=== PATIENT | female | born 1980 | race American Indian/Alaskan Native ===

== ENCOUNTER 2016-09-29 14:01 | Emergency (ER) | payer SELFPAY ==
[2016-09-29 14:14] VITALS: BP 119/71
[2016-09-29] MEDS ORDERED: DILAUDID IM ONE (16:49)
[2016-09-29] MEDS ORDERED: REGLAN IM ONE (16:49)
--- NOTE | 2016-09-29 17:05 | Emergency Department Report ---
ED Headache HPI - General Chief Complaint: Headache Stated Complaint: MIGRAINE/DIZZINESS Time Seen by Provider: 09/29/16 16:18 Source: patient - History of Present Illness Initial Comments: Action comes into the ER today with complaints of right sided headache for the past one day. Patient denies any injury. Patient notes that she does have a history of headaches and that her last headache of this magnitude was approximately 1.5 months ago. Patient denies any known definitive cause to her recurrent headaches but does state that since she has moved to the area, she does seem to get more headaches. Patient states that she used to live in [place] and [facility] and that she thinks her sinuses may be worse here in [place]. Patient states that this headache does feel similar to her past migraines. Patient has been nauseated without any vomiting. Patient denies any visual changes but does state that the light seems to intensify the pain. Patientthat she has had these in the past and that usually a Dilaudid shot is required to help with her discomfort. Allergies/Adverse Reactions: Allergies haloperidol [From Haldol] Adverse Reaction (Verified 09/29/16 14:15) dystonic reaction haloperidol lactate [From Haldol] Adverse Reaction (Verified 09/29/16 14:15) dystonic reaction Home Medications: Ambulatory Orders Loperamide [Imodium] 2 mg PO Q2HR #10 capsule 06/28/15 Magnesium Oxide [Magnesium] 400 mg PO BID #30 tablet 08/01/15 Meclizine [Antivert] 25 mg PO TID PRN #30 tablet 08/01/15 Metoclopramide [Reglan] 10 mg PO QID PRN #20 tab 08/01/15 Potassium Chloride [K-Dur] 20 meq PO BID #30 tab 08/01/15 Acetaminophen/Codeine [Tylenol #3] 1 tab PO Q6H PRN #12 tab 11/19/15 Cephalexin [Keflex] 500 mg PO Q8HR #5 cap 11/19/15 Amoxicillin 1,000 mg PO BID #40 capsule 09/29/16 Butalb/Acetamin/Caff 50-325-40 [Fioricet] 1 tab PO Q6HR PRN #20 tab 09/29/16 Promethazine [Phenergan TAB] 25 mg PO Q8HR PRN #15 tab 09/29/16 ED Review of Systems ROS: Stated complaint: MIGRAINE/DIZZINESS Other details as noted in HPI Constitutional: denies: chills, fever Eyes: denies: eye pain, eye discharge, vision change ENT: congestion. denies: ear pain, throat pain, dental pain, hearing loss, epistaxis Respiratory: denies: cough, shortness of breath, wheezing Cardiovascular: denies: chest pain, palpitations Endocrine: no symptoms reported Gastrointestinal: nausea. denies: abdominal pain, vomiting, diarrhea Genitourinary: denies: urgency, dysuria, discharge Musculoskeletal: denies: back pain, joint swelling, arthralgia Skin: denies: rash, lesions Neurological: headache. denies: weakness, numbness, paresthesias, confusion, abnormal gait, vertigo Psychiatric: denies: anxiety, depression Hematological/Lymphatic: denies: easy bleeding, easy bruising ED Past Medical Hx - Past Medical History Hx Headaches / Migraines: Yes (migraines) Hx Asthma: Yes Additional medical history: Gidelmans syndrome - Surgical History Additional Surgical History: hysterectomy 2005 - Social History Smoking Status: Current Every Day Smoker Substance Use Type: Prescribed - Medications Home Medications: Home Medications Medication Instructions Recorded Confirmed Last Taken Type Loperamide [Imodium] 2 mg PO Q2HR #10 capsule 06/28/15 Unknown Rx Magnesium Oxide [Magnesium] 400 mg PO BID #30 tablet 08/01/15 Unknown Rx Meclizine [Antivert] 25 mg PO TID PRN #30 tablet 08/01/15 Unknown Rx Metoclopramide [Reglan] 10 mg PO QID PRN #20 tab 08/01/15 Unknown Rx Potassium Chloride [K-Dur] 20 meq PO BID #30 tab 08/01/15 Unknown Rx Acetaminophen/Codeine [Tylenol #3] 1 tab PO Q6H PRN #12 tab 11/19/15 Unknown Rx Cephalexin [Keflex] 500 mg PO Q8HR #5 cap 11/19/15 Unknown Rx Amoxicillin 1,000 mg PO BID #40 capsule 09/29/16 Unknown Rx Butalb/Acetamin/Caff 50-325-40 1 tab PO Q6HR PRN #20 tab 09/29/16 Unknown Rx [Fioricet] Promethazine [Phenergan TAB] 25 mg PO Q8HR PRN #15 tab 09/29/16 Unknown Rx ED Physical Exam - General Limitations: No Limitations General appearance: alert, in no apparent distress - Head Head exam: Present: atraumatic, normocephalic - Eye Eye exam: Present: normal appearance, PERRL, EOMI. Absent: conjunctival injection, periorbital swelling, periorbital tenderness Pupils: Present: normal accommodation - ENT ENT exam: Present: normal orophraynx, mucous membranes moist, TM's normal bilaterally, normal external ear exam, other (bilateral nasal mucosa redness and turbinate swelling. Right maxillary and frontal sinus tenderness to percussion.) - Neck Neck exam: Present: normal inspection, full ROM. Absent: tenderness, lymphadenopathy - Respiratory Respiratory exam: Present: normal lung sounds bilaterally. Absent: respiratory distress, decreased breath sounds - Cardiovascular Cardiovascular Exam: Present: regular rate, normal rhythm, normal heart sounds. Absent: systolic murmur, diastolic murmur, rubs, gallop - GI/Abdominal GI/Abdominal exam: Present: soft, normal bowel sounds. Absent: distended, tenderness - Extremities Exam Extremities exam: Present: normal inspection, full ROM, normal capillary refill. Absent: tenderness, pedal edema, joint swelling, calf tenderness - Back Exam Back exam: Present: normal inspection, full ROM. Absent: tenderness, CVA tenderness (R), CVA tenderness (L), muscle spasm, paraspinal tenderness, vertebral tenderness - Neurological Exam Neurological exam: Present: alert, oriented X3, CN II-XII intact, normal gait, reflexes normal. Absent: motor sensory deficit - Psychiatric Psychiatric exam: Present: normal affect, normal mood - Skin Skin exam: Present: warm, dry, intact, normal color. Absent: rash ED Course Vital Signs 09/29/16 09/29/16 14:09 17:01 Temperature 98.8 F Pulse Rate 92 H Respiratory 15 18 Rate Blood Pressure 119/71 O2 Sat by Pulse 100 Oximetry ED Medical Decision Making - Medical Decision Making Patient is nontoxic and hemodynamically stable. I believe patient's underlying cause to her recurrent headaches is most likely sinus related. Patient does have examination consistent with sinus infection today. I will start patient on antibiotics accordingly for her sinuses as well as prescribe her some medications for her headache. Patient was given intramuscular Reglan and Dilaudid shot here in the ER to expedite symptomatic relief. I will also refer patient to neurology for further evaluation of her recurrent headaches. Patient is in agreement with treatment plan patient is stable for discharge. Critical care attestation.: If time is entered above; I have spent that time in minutes in the direct care of this critically ill patient, excluding procedure time. ED Disposition Clinical Impression: Right-sided headache, Sinusitis Disposition: TO HOME OR SELFCARE Is pt being admited?: No Does the pt Need Aspirin: No Condition: Good Instructions: Sinusitis (ED), Migraine Headache (ED) Prescriptions: Amoxicillin 1,000 mg PO BID #40 capsule Butalb/Acetamin/Caff 50-325-40 [Fioricet] 1 tab PO Q6HR PRN #20 tab PRN Reason: Headache Promethazine [Phenergan TAB] 25 mg PO Q8HR PRN #15 tab PRN Reason: Nausea Referrals: PRIMARY CAREMD [Primary Care Provider] - 3-5 Days LEISA GUTIERREZ MD [Referring] - 3-5 Days (Neurology doctor) Time of Disposition: 17:10
== END 2016-09-29 17:37 | disposition home or self-care (01) ==
LOC: ED 14:01
DX: J32.9 Chronic sinusitis, unspecified (principal); R51 Headache; G43.909 Migraine, unspecified, not intractable, without status migrainosus; F17.200 Nicotine dependence, unspecified, uncomplicated; J45.909 Unspecified asthma, uncomplicated; Z88.8 Allergy status to other drugs, medicaments and biological substances
CPT/HCPCS: 96372; 99282; J1170; J2765

== ENCOUNTER 2016-10-25 18:57 | Emergency (ER) | payer OTHER ==
[2016-10-25 21:05] LABS: Bacteria,Urine 1+ /HPF (Negative); Bilirubin,Urine NEG (Negative); Blood,Urine NEG (Negative); Ketones,Urine NEG (Negative); Leukocyte Esterase,Urine SM (Negative); Mucus,Urine FEW /HPF; Nitrite,Urine NEG (Negative); Protein,Urine <15 mg/dL mg/dL (Negative); Urobilinogen,Urine < 2.0 mg/dL (<2.0)
[2016-10-26] MEDS ORDERED: ZOFRAN ONE (03:24)
[2016-10-26] MEDS ORDERED: NACL 0.9% 1000 ML 1,000 ML ONE (03:24)
[2016-10-26] MEDS ORDERED: ZOFRAN IV ONE ×2 (03:31→07:10)
[2016-10-26] MEDS ORDERED: NACL 0.9% 1000 ML 1,000 ML IV ONE (03:32)
[2016-10-26 06:33] VITALS: BP 125/68
[2016-10-26] MEDS ORDERED: MORPHINE IV ONE (07:09)
--- NOTE | 2016-10-26 07:10 | Emergency Department Report ---
HPI - General Chief Complaint: Back Pain/Injury Time Seen by Provider: 10/26/16 07:04 - HPI HPI: patient with suprapubic pain, back pain, and dysuria. patient states pain started yesterday, and is worse today. patient denies any fever, chills, nightsweats. ED Past Medical Hx - Past Medical History Previous Medical History?: Yes Hx Headaches / Migraines: Yes (migraines) Hx Asthma: Yes Additional medical history: Gidelmans syndrome - Surgical History Past Surgical History?: Yes Additional Surgical History: hysterectomy 2005 - Social History Smoking Status: Current Every Day Smoker Substance Use Type: None - Medications Home Medications: Home Medications Medication Instructions Recorded Confirmed Last Taken Type Loperamide [Imodium] 2 mg PO Q2HR #10 capsule 06/28/15 Unknown Rx Magnesium Oxide [Magnesium] 400 mg PO BID #30 tablet 08/01/15 Unknown Rx Meclizine [Antivert] 25 mg PO TID PRN #30 tablet 08/01/15 Unknown Rx Metoclopramide [Reglan] 10 mg PO QID PRN #20 tab 08/01/15 Unknown Rx Potassium Chloride [K-Dur] 20 meq PO BID #30 tab 08/01/15 Unknown Rx Acetaminophen/Codeine [Tylenol #3] 1 tab PO Q6H PRN #12 tab 11/19/15 Unknown Rx Cephalexin [Keflex] 500 mg PO Q8HR #5 cap 11/19/15 Unknown Rx Amoxicillin 1,000 mg PO BID #40 capsule 09/29/16 Unknown Rx Butalb/Acetamin/Caff 50-325-40 1 tab PO Q6HR PRN #20 tab 09/29/16 Unknown Rx [Fioricet] Promethazine [Phenergan TAB] 25 mg PO Q8HR PRN #15 tab 09/29/16 Unknown Rx Ciprofloxacin HCl [Ciprofloxacin 500 mg PO Q12HR #14 tab 10/26/16 Unknown Rx TAB] ED Review of Systems ROS: Stated complaint: LOWER BACK PAIN/RIGHT SIDE PAIN Other details as noted in HPI Comment: All other systems reviewed and negative Genitourinary: urgency, dysuria Musculoskeletal: back pain Physical Exam - Physical Exam Vital Signs: Vital Signs 10/25/16 10/26/16 10/26/16 19:15 02:29 06:33 Temperature 98.8 F 98.7 F Pulse Rate 74 68 72 Respiratory 18 17 18 Rate Blood Pressure 104/62 Blood Pressure 132/91 125/68 [Left] O2 Sat by Pulse 100 99 100 Oximetry Physical Exam: gen: alert and oriented x3 heent: perrla, eomi cv: rrr, nl s1, s2 lungs: cta bila abd: s,nt,nd, pos bs ext: no edema gu: pt refused neuro: no deficits psych: normal mood, ED Course Vital Signs 10/25/16 10/26/16 10/26/16 19:15 02:29 06:33 Temperature 98.8 F 98.7 F Pulse Rate 74 68 72 Respiratory 18 17 18 Rate Blood Pressure 104/62 Blood Pressure 132/91 125/68 [Left] O2 Sat by Pulse 100 99 100 Oximetry Critical care attestation.: If time is entered above; I have spent that time in minutes in the direct care of this critically ill patient, excluding procedure time. ED Disposition Clinical Impression: UTI (urinary tract infection), Back pain Disposition: DC-01 TO HOME OR SELFCARE Is pt being admited?: No Does the pt Need Aspirin: No Condition: Stable Instructions: Urinary Tract Infection in Women (ED) Prescriptions: Ciprofloxacin HCl [Ciprofloxacin TAB] 500 mg PO Q12HR #14 tab Referrals: PRIMARY CARE, [Primary Care Provider] - 3-5 Days
== END 2016-10-26 07:58 | disposition home or self-care (01) ==
LOC: ED 18:57
DX: N39.0 Urinary tract infection, site not specified (principal); G43.909 Migraine, unspecified, not intractable, without status migrainosus; J45.909 Unspecified asthma, uncomplicated; F17.200 Nicotine dependence, unspecified, uncomplicated
CPT/HCPCS: 81001; 96361; 96374; 96375; 96376; 99283; J2270; J2405; J7030

== ENCOUNTER 2018-06-11 00:42 | Emergency (ER) | payer OTHER ==
--- NOTE | 2018-06-11 02:00 | XRay Report ---
PROCEDURE: XR SPINE LUMBOSACRAL 2-3V TECHNIQUE: AP and lateral views were obtained. HISTORY: lower back pain COMPARISONS: None FINDINGS: There is severe narrowing of the L1-L2 disc with endplate spurring. There is mild narrowing of the L3 -L4, L4-L5 and L5-S1 disc. There is additional disc degeneration in the lower thoracic spine. There i s no evidence of fracture. The alignment appears normal. The SI joints appear normal. The soft tissue s are well-maintained. IMPRESSION: Multilevel disc degeneration. No evidence of fracture.. This document is electronically signed by Florenico Martinez MD., June 11 2018 01:58:26 AM ET
--- NOTE | 2018-06-11 03:06 | Emergency Department Report ---
ED Back Pain/Injury HPI - General Chief Complaint: Back Pain/Injury Stated Complaint: BACK PAIN Time Seen by Provider: 06/11/18 02:59 Source: patient Limitations: No Limitations - History of Present Illness Initial Comments: 37-year-old female presents to the emergency room complaining of back pain 1 week. Patient reports at 2300 last night she started to have severe pain after assisting her was lifting a mattress. Patient reports that she took Aleve earlier yesterday and reports it had helped some. Patient has a past medical history of hypotension, C-spine pinched nerve, herniated disc in the lower back. MD Complaint: back pain -: week(s) (1) Similar Symptoms Previously: Yes Place: home Radiation: buttocks, left leg Severity: severe Severity scale (0 -10): 10 Quality: burning, sharp Consistency: intermittent Improves With: medication Worsens With: movement, deep breaths/cough Context: while lifting (a mattress) Associated Symptoms: denies: chest pain, difficulty urinating, incontinence - Related Data Previous Rx's Medication Instructions Recorded Last Taken Type Loperamide [Imodium] 2 mg PO Q2HR #10 capsule 06/28/15 Unknown Rx Magnesium Oxide [Magnesium] 400 mg PO BID #30 tablet 08/01/15 Unknown Rx Meclizine [Antivert] 25 mg PO TID PRN #30 tablet 08/01/15 Unknown Rx Metoclopramide [Reglan] 10 mg PO QID PRN #20 tab 08/01/15 Unknown Rx Potassium Chloride [K-Dur] 20 meq PO BID #30 tab 08/01/15 Unknown Rx Acetaminophen/Codeine [Tylenol #3] 1 tab PO Q6H PRN #12 tab 11/19/15 Unknown Rx cephALEXin [Keflex] 500 mg PO Q8HR #5 cap 11/19/15 Unknown Rx Amoxicillin 1,000 mg PO BID #40 capsule 09/29/16 Unknown Rx Butalb/Acetamin/Caff 50-325-40 1 tab PO Q6HR PRN #20 tab 09/29/16 Unknown Rx [Fioricet] Promethazine [Phenergan TAB] 25 mg PO Q8HR PRN #15 tab 09/29/16 Unknown Rx Ciprofloxacin HCl [Ciprofloxacin 500 mg PO Q12HR #14 tab 10/26/16 Unknown Rx TAB] Cyclobenzaprine [Flexeril] 10 mg PO TID PRN #30 tablet 06/03/18 Unknown Rx Menthol/Camphor [Bogart [place] 1 applicatio TP TID PRN #30 06/03/18 Unknown Rx Ointment] oint...g. Naproxen 500 mg PO BID PRN #30 tablet 06/03/18 Unknown Rx Diclofenac Sodium 25 mg PO TID PRN #21 tablet. 06/11/18 Unknown Rx Allergies Allergy/AdvReac Type Severity Reaction Status Date / Time haloperidol [From Haldol] AdvReac dystonic Verified 09/29/16 14:15 reaction haloperidol lactate AdvReac dystonic Verified 09/29/16 14:15 [From Haldol] reaction ED Review of Systems ROS: Stated complaint: BACK PAIN Other details as noted in HPI Comment: All other systems reviewed and negative Musculoskeletal: back pain ED Past Medical Hx - Past Medical History Hx Headaches / Migraines: Yes (migraines) Hx Asthma: Yes Additional medical history: Gidelmans syndrome, Hypotension, C-Spine Pinched Nerve,. Herniated Disc lower Back - Surgical History Additional Surgical History: hysterectomy 2005 - Social History Smoking Status: Current Every Day Smoker Substance Use Type: None - Medications Home Medications: Home Medications Medication Instructions Recorded Confirmed Last Taken Type Loperamide [Imodium] 2 mg PO Q2HR #10 capsule 06/28/15 Unknown Rx Magnesium Oxide [Magnesium] 400 mg PO BID #30 tablet 08/01/15 Unknown Rx Meclizine [Antivert] 25 mg PO TID PRN #30 tablet 08/01/15 Unknown Rx Metoclopramide [Reglan] 10 mg PO QID PRN #20 tab 08/01/15 Unknown Rx Potassium Chloride [K-Dur] 20 meq PO BID #30 tab 08/01/15 Unknown Rx Acetaminophen/Codeine [Tylenol #3] 1 tab PO Q6H PRN #12 tab 11/19/15 Unknown Rx cephALEXin [Keflex] 500 mg PO Q8HR #5 cap 11/19/15 Unknown Rx Amoxicillin 1,000 mg PO BID #40 capsule 09/29/16 Unknown Rx Butalb/Acetamin/Caff 50-325-40 1 tab PO Q6HR PRN #20 tab 09/29/16 Unknown Rx [Fioricet] Promethazine [Phenergan TAB] 25 mg PO Q8HR PRN #15 tab 09/29/16 Unknown Rx Ciprofloxacin HCl [Ciprofloxacin 500 mg PO Q12HR #14 tab 10/26/16 Unknown Rx TAB] Cyclobenzaprine [Flexeril] 10 mg PO TID PRN #30 tablet 06/03/18 Unknown Rx Menthol/Camphor [Bogart [place] 1 applicatio TP TID PRN #30 06/03/18 Unknown Rx Ointment] oint...g. Naproxen 500 mg PO BID PRN #30 tablet 06/03/18 Unknown Rx Diclofenac Sodium 25 mg PO TID PRN #21 tablet.dr 06/11/18 Unknown Rx ED Physical Exam - General Limitations: No Limitations General appearance: alert, in no apparent distress - Head Head exam: Present: atraumatic, normocephalic - Eye Eye exam: Present: normal appearance - Back Exam Back exam: Present: paraspinal tenderness - Expanded Back Exam Expanded Back exam: Sciatic Notch Tenderness: Right - Neurological Exam Neurological exam: Present: alert, oriented X3 - Psychiatric Psychiatric exam: Present: normal affect, normal mood - Skin Skin exam: Present: warm, dry, intact, normal color. Absent: rash ED Course Vital Signs 06/11/18 06/11/18 00:51 04:15 Temperature 97.8 F Pulse Rate 87 72 Respiratory 18 16 Rate Blood Pressure 98/57 Blood Pressure 108/53 [Left] O2 Sat by Pulse 99 99 Oximetry ED Medical Decision Making - Radiology Data Radiology results: report reviewed Patient: LEXI BHATT MR#: [id number] : 1980 Acct:[id number] Age/Sex: 37 / F ADM Date: 06/11/18 Loc: ED Attending Dr: Ordering Physician: KATHLEEN TAYLOR MD Date of Service: 06/11/18 Procedure(s): XR spine lumbosacral 2-3V Accession Number(s): [id number] cc: ED MD CLAUDIA Fluoro Time In Minutes: PROCEDURE: XR SPINE LUMBOSACRAL 2-3V TECHNIQUE: AP and lateral views were obtained. HISTORY: lower back pain COMPARISONS: None FINDINGS: There is severe narrowing of the L1-L2 disc with endplate spurring. There is mild narrowing of the L3-L4, L4-L5 and L5-S1 disc. There is additional disc degeneration in the lower thoracic spine. There is no evidence of fracture. The alignment appears normal. The SI joints appear normal. The soft tissues are well-maintained. IMPRESSION: Multilevel disc degeneration. No evidence of fracture.. This document is electronically signed by Lupe Martinez MD., June 11 2018 01:58:26 AM ET Transcribed By: RB Dictated By: LUPE MARTINEZ MD Electronically Authenticated By: LUPE MARTINEZ MD Signed Date/Time: 06/11/18199 DD/ 0 TD/TT: 06/11/18151 - Medical Decision Making 37-year-old female comes in for back pain. X-rays shows no acute changes of the back. Patient be discharged on pain medication and to follow-up with her primary care provider. Critical care attestation.: If time is entered above; I have spent that time in minutes in the direct care of this critically ill patient, excluding procedure time. ED Disposition Clinical Impression: Low back strain Back strain Qualifiers: Encounter type: initial encounter Qualified Code(s): S39.012A - Strain of muscle, fascia and tendon of lower back, initial encounter Degenerative disc disease Qualifiers: Spinal region: lumbosacral Qualified Code(s): M51.37 - Other intervertebral disc degeneration, lumbosacral region Disposition: -01 TO HOME OR SELFCARE Is pt being admited?: No Does the pt Need Aspirin: No Condition: Stable Instructions: Muscle Strain (ED), Degenerative Disc Disease (ED) Additional Instructions: Please take medication for pain as prescribed. Is very important for you to follow up with orthopedic provider. I have listed several below for your convenience. He is increase her water intake while taking pain medication. Prescriptions: Diclofenac Sodium 25 mg PO TID PRN #21 tablet.dr MARQUEZ Reason: Pain , Severe (7-10) Referrals: JENNIFER KELLEY MD [Primary Care Provider] - 3-5 Days LUPE STRAUSS MD [Staff Physician] - 3-5 Days TESSA LANDON MD [Staff Physician] - 3-5 Days Forms: Work/School Release Form(ED)
[2018-06-11] MEDS ORDERED: TORADOL IM ONE (03:11)
[2018-06-11 04:16] VITALS: BP 108/53
== END 2018-06-11 04:10 | disposition home or self-care (01) ==
LOC: ED 00:42
DX: S39.012A Strain of muscle, fascia and tendon of lower back, initial encounter (principal); M51.37 Other intervertebral disc degeneration, lumbosacral region; J45.909 Unspecified asthma, uncomplicated; G43.909 Migraine, unspecified, not intractable, without status migrainosus; F17.200 Nicotine dependence, unspecified, uncomplicated; Z90.710 Acquired absence of both cervix and uterus; X50.0XXA Overexertion from strenuous movement or load, initial encounter; Y93.89 Activity, other specified; Y92.89 Other specified places as the place of occurrence of the external cause; Y99.8 Other external cause status
CPT/HCPCS: 72100; 96372; 99283; J1885

== ENCOUNTER 2020-10-15 20:14 | Emergency (ER) | payer SELFPAY | END 2020-10-15 20:20 | disposition left against medical advice (07) | LOC: ED 20:14 | DX: R51.9 Headache, unspecified (principal); Z53.21 Procedure and treatment not carried out due to patient leaving prior to being seen by health care provider ==